=== PATIENT | female | born 2000 | race American Indian/Alaskan Native ===

== ENCOUNTER 2020-09-12 21:45 | Emergency (ER) | payer OTHER ==
[2020-09-12 22:59] LABS: Basophils % (Auto) 0.7 % (0.0-1.8); Eosinophils % (Auto) 0.4 % (0.0-4.3); Hematocrit 34.9 % (30.3-42.9); Hemoglobin 11.7 gm/dl (10.1-14.3); Lymphocytes # (Auto) 1.8 K/mm3 (1.2-5.4); Lymphocytes % (Auto) 25.1 % (13.4-35.0); Mean Corpuscular HGB Conc 34 % (30-34); Mean Corpuscular Volume 90 fl (79-97); Monocytes # (Auto) 0.4 K/mm3 (0.0-0.8); Monocytes % (Auto) 5.6 % (0.0-7.3); Platelet Count 233 K/mm3 (140-440); Red Blood Count 3.88 M/mm3 (3.65-5.03); Red Cell Distribution Width 13.9 % (13.2-15.2)
[2020-09-12 23:21] LABS: Blood Urea Nitrogen 6 mg/dL (7-17); Calcium 9.4 mg/dL (8.4-10.2); Hemolysis Index 6
[2020-09-12 23:38] LABS: BUN/Creatinine Ratio 10
[2020-09-13 00:19] LABS: Bilirubin,Urine NEG (Negative); Blood,Urine NEG (Negative); Color,Urine Yellow (Yellow); Mucus,Urine 3+ /HPF
[2020-09-13] MEDS ORDERED: SODIUM CHLORIDE 0.9% 1000 ML 1,000 ML IV ONE (00:36)
[2020-09-13] MEDS ORDERED: diphenhydrAMINE 50 MG/ML VIAL IV STA (00:36)
[2020-09-13] MEDS ORDERED: METOCLOPRAMIDE 10 MG/2 ML INJ IV STA (00:36)
--- NOTE | 2020-09-13 00:39 | Emergency Department Report ---
<MICHELLE LOMAX - Last Filed: 09/13/20 07:42> ED N/V/D HPI - General Chief complaint: Abdominal Pain Stated complaint: 16 WEEKS PREG/VOMIT Time Seen by Provider: 09/13/20 00:34 Source: patient, EMS Mode of arrival: Stretcher Limitations: No Limitations - History of Present Illness -: days(s) (2 of worsening nasusea and vomiting which originally started 7 weeks ago) Description of Vomiting: food contents Associated Abdominal Pain: Yes Radiation: none Severity: mild, moderate Quality: aching, dull Consistency: intermittent Improves with: none Worsens with: eating Context: other (morning sicknes) Associated Symptoms: nausea/vomiting. denies: myalgias, chest pain, diapho resis, malaise, syncope, weakness - Related Data Previous Rx's Medication Instructions Recorded Last Taken Type Doxylamine Succinate/Vit B6 1 each PO TID #30 tablet. 09/13/20 Unknown Rx [Jeannette Farris 10-10 mg Tablet] Allergies Allergy/AdvReac Type Severity Reaction Status Date / Time No Known Allergies Allergy Unverified 09/12/20 22:36 ED Review of Systems Comment: All other systems reviewed and negative ED Past Medical Hx - Past Medical History Previous Medical History?: Yes Additional medical history: Anemia - Surgical History Past Surgical History?: No - Social History Smoking Status: Never Smoker Substance Use Type: None - Medications Home Medications: Home Medications Medication Instructions Recorded Confirmed Last Taken Type Doxylamine Succinate/Vit B6 1 each PO TID #30 tablet. 09/13/20 Unknown Rx [Jeannette Farris 10-10 mg Tablet] ED Physical Exam - General Limitations: No Limitations General appearance: alert, in no apparent distress - Head Head exam: Present: atraumatic, normocephalic - Eye Eye exam: Present: normal appearance - ENT ENT exam: Present: mucous membranes moist - Neck Neck exam: Present: normal inspection - Respiratory Respiratory exam: Present: normal lung sounds bilaterally. Absent: respiratory distress - Cardiovascular Cardiovascular Exam: Present: regular rate, normal rhythm. Absent: systolic murmur, diastolic murmur, rubs, gallop - GI/Abdominal GI/Abdominal exam: Present: soft, tenderness (to lower abdominal region. ), normal bowel sounds, other (some potuberance due to pregancy). Absent: guar ding, rebound, organomegaly, mass - Extremities Exam Extremities exam: Present: normal inspection - Back Exam Back exam: Present: normal inspection - Neurological Exam Neurological exam: Present: alert, oriented X3 - Psychiatric Psychiatric exam: Present: normal affect, normal mood - Skin Skin exam: Present: warm, dry, intact, normal color. Absent: rash ED Medical Decision Making - Lab Data Result diagrams: 09/12/20 22:43 09/12/20 22:43 - Radiology Data female presents emergency department complaining of nausea and vomiting without diarrhea. The patient is overall well-appearing and suspected to have hyperemesis gravidarum. Given the history of examination he does not appear to be an emergency cause for the symptoms such as small bowel obstruction, coronary syndrome, bowel ischemia, DKA, pancreatitis, appendicitis, acute abdomen no emergent problem. Patient was treated with Reglan, Benadryl, fluids as well as vitamin D6. After treatment patient is feeling much better tolerating p.o. fluids shows no signs of dehydration ED Disposition Clinical Impression: Hyperemesis arising during Disposition: DC-01 TO HOME OR SELFCARE Is pt being admited?: No Does the pt Need Aspirin: No Condition: Stable Instructions: Hyperemesis Gravidarum, Abdominal Pain (ED) Prescriptions: Doxylamine Succinate/Vit B6 [Jeannette Farris 10-10 mg Tablet] 1 each PO TID #30 tablet. Referrals: PRIMARY CARE, [Primary Care Provider] - 3-5 Days [facility] [Provider Group] - 3-5 Days <TAYLOR RIOS - Last Filed: 09/15/20 20:24> ED Review of Systems ROS: Stated complaint: 16 WEEKS PREG/VOMIT Other details as noted in HPI ED Course Vital Signs 09/12/20 09/13/20 22:31 04:21 Temperature 98.3 F 98.1 F Pulse Rate 102 H 82 Respiratory 18 18 Rate Blood Pressure 118/76 Blood Pressure 120/82 [Right] O2 Sat by Pulse 100 98 Oximetry ED Medical Decision Making - Lab Data Result diagrams: 09/12/20 22:43 09/12/20 22:43 Critical care attestation.: If time is entered above; I have spent that time in minutes in the direct care of this critically ill patient, excluding procedure time. ED Disposition Is pt being admited?: No Does the pt Need Aspirin: No
[2020-09-13] MEDS ORDERED: PYRIDOXINE 50 MG TAB PO ONE (01:36)
[2020-09-13 06:54] VITALS: BP 120/82
== END 2020-09-13 04:21 | disposition home or self-care (01) ==
LOC: ED 21:45
DX: O21.0 Mild hyperemesis gravidarum (principal); O99.012 Anemia complicating pregnancy, second trimester; Z3A.16 16 weeks gestation of pregnancy; Z79.899 Other long term (current) drug therapy
CPT/HCPCS: 36415; 80048; 81001; 84702; 85025; 96361; 96374; 96375; 99284; J1200; J2765; J7030

== ENCOUNTER 2021-02-04 11:10 | Outpatient (CLI) | payer OTHER ==
[2021-02-04] MEDS ORDERED: LACTATED RINGERS 1,000 ML ONE (11:25)
[2021-02-04] MEDS: LACTATED RINGERS 1,000 ML IV SCH ×3 (12:03→16:31)
[2021-02-04] MEDS ORDERED: TERBUTALINE 1 MG/1 ML INJ SUB-Q ONE (14:43)
[2021-02-04 15:57] VITALS: BP 97/53
[2021-02-04] MEDS ORDERED: TERBUTALINE 1 MG/1 ML INJ SUB-Q SCH (16:00)
== END 2021-02-04 17:20 | disposition home or self-care (01) ==
LOC: TRG 11:10 → APU 11:12 → TRG 17:20
PROVIDERS: ATTEND Obstetrics & Gynecology
DX: O62.9 Abnormality of forces of labor, unspecified (principal); Z3A.34 34 weeks gestation of pregnancy
CPT/HCPCS: 59025; 96360; 96361; 96372; J3105; J7120

== ENCOUNTER 2021-03-03 07:47 | Inpatient (IN) | payer OTHER ==
[2021-03-03] MEDS ORDERED: LACTATED RINGERS 1000 ML IV SOLN IV SCH (09:00)
[2021-03-03 09:07] LABS: Amorphous Crystals,Urine Few; Bilirubin,Urine NEG (Negative); Blood,Urine NEG (Negative); Color,Urine Yellow (Yellow); Mucus,Urine 2+ /HPF
[2021-03-03 09:14] LABS: Amphetamine Screen,Urine Negative; Benzodiazepines Screen,Urine Negative; Cannabinoid Screen,Urine Negative; Cocaine Screen,Urine Negative; Methadone Screen,Urine Negative; Opiate Screen,Urine Negative
[2021-03-03] MEDS ORDERED: LIDOCAINE (2%) 20 MG/1 ML VIAL 20 ML MDV INFILTRATI NR (10:00)
[2021-03-03] MEDS ORDERED: miSOPROStol 200 MCG TAB PR PRN (10:00)
[2021-03-03] MEDS ORDERED: OXYTOCIN 10 UNIT/1 ML INJ IM PRN (10:00)
[2021-03-03] MEDS ORDERED: LACTATED RINGERS 1,000 ML IV SCH (10:00)
[2021-03-03] MEDS ORDERED: AMPICILLIN/NS 2 GM/100 ML 2 GM/100 ML BAG IV ONE ×2 (10:00→14:00)
[2021-03-03] MEDS ORDERED: ONDANSETRON 4 MG/2 ML INJ IV PRN (10:00)
[2021-03-03] MEDS ORDERED: METHYLERGONOVINE MALEATE 0.2 MG/ML VIAL IM PRN (10:00)
[2021-03-03] MEDS ORDERED: TERBUTALINE 1 MG/1 ML INJ SUB-Q PRN (10:00)
[2021-03-03] MEDS ORDERED: ePHEDrine SULFATE 50 MG/1 ML INJ IV PRN ×2 (10:00→14:00)
[2021-03-03] MEDS ORDERED: OXYTOCIN DRIP 30 UNITS/500 ML BAG IV SCH ×2 (10:00)
[2021-03-03] MEDS: fentaNYL 100 MCG/2 ML INJ IV PRN ×2 (10:45→12:57)
[2021-03-03 10:51] LABS: Hematocrit 34.4 % (30.3-42.9); Hemoglobin 11.4 gm/dl (10.1-14.3); Mean Corpuscular HGB Conc 33 % (30-34); Mean Corpuscular Volume 91 fl (79-97); Platelet Count 223 K/mm3 (140-440); Red Cell Distribution Width 13.7 % (13.2-15.2)
--- NOTE | 2021-03-03 13:51 | Anesthesia Day of Surgery ---
Anesthesia Day of Surgery - Day of Surgery Patient Examined: Yes Patient H&P Reviewed: Yes Patient is NPO: No
--- NOTE | 2021-03-03 13:52 | Anesthesia Consultation ---
Anesthesia Consult and Med Hx Date of service: 03/03/21 - Pre-Operative Health Status ASA Pre-Surgery Classification: ASA2 Proposed Anesthetic Plan: Epidural - Pulmonary Hx Asthma: No - Cardiovascular System Hx Hypertension: No - Central Nervous System Hx Seizures: No Hx Psychiatric Problems: No - Endocrine Hx Renal Disease: No Hx Hypothyroidism: No Hx Hyperthyroidism: No - Hematic Hx Anemia: No Hx Sickle Cell Disease: No - Other Systems Hx Alcohol Use: Yes (not during ) Hx Obesity: No
[2021-03-03] MEDS ORDERED: NALOXONE 2 MG/2 ML INJ IV PRN (14:00)
[2021-03-03] MEDS ORDERED: AMPICILLIN/NS 1 GM/50 ML 1 GM/50 ML BAG IV SCH ×2 (14:00→18:00)
[2021-03-03] MEDS ORDERED: fentaNYL-BUPIV 2 MCG/ML-0.125% 200 MCG/100 ML BAG EPIDURAL SCH (14:00)
--- NOTE | 2021-03-03 14:07 | Progress Note ---
Labor Epidural - Labor Epidural Start Time: 13:22 Stop Time: 13:47 Performed by:: JAHAIRA CASTILLO ([facility]) Procedure: Patient is requesting epidural for labor and pain. H&P, labs were reviewed. Patient IDed, H&P reviewed, all questions and concerns were answered, and consent was signed. Timeout was performed at bedside. Patient in sitting position. Sterile prep and drape was performed. 3ml of 1% lidocaine skin wheal at L[3]- L [4]. 18-gauge Tuohy epidural needle was advanced to loss of resistance with saline technique 6cm. Negative CSF negative blood. Epidural catheter advanced to [12] centimeters. [negative] Aspiration [negative] test dose. Sterile dressing applied. Patient tolerated procedure.
--- NOTE | 2021-03-03 19:36 | Progress Note ---
Assessment and Plan patient resting left tilt, no complaints. SVE 8/90/+1, head with moulding. cervix swollen at anterior portion. Patient turned to right side, left leg placed in stirrup. Will continue to monitor. - Patient Problems (1) Group B Streptococcus carrier state affecting Current Visit: Yes Status: Acute Plan to address problem: Ampicillin q4hrs until delivery (2) IUGR (intrauterine growth restriction) Current Visit: Yes Status: Acute (3) with 38 completed weeks gestation Current Visit: Yes Status: Acute Subjective - Subjective Date of service: 03/03/21 Principal diagnosis: IUP@ 38w SROM Patient reports: movement normal, no new complaints Objective - Vital Signs Vital Signs: Vital Signs - 12hr 03/03/21 03/03/21 03/03/21 08:22 08:23 08:24 Temperature Pulse Rate 93 H Respiratory Rate Blood Pressure 94/58 Blood Pressure [Left] O2 Sat by Pulse 84 86 Oximetry 03/03/21 03/03/21 03/03/21 08:28 08:33 08:38 Temperature Pulse Rate 90 92 H 87 Respiratory Rate Blood Pressure Blood Pressure [Left] O2 Sat by Pulse 100 100 100 Oximetry 03/03/21 03/03/21 03/03/21 08:43 08:48 08:53 Temperature Pulse Rate 83 84 87 Respiratory Rate Blood Pressure Blood Pressure [Left] O2 Sat by Pulse 100 100 100 Oximetry 03/03/21 03/03/21 03/03/21 08:58 09:03 09:08 Temperature Pulse Rate 79 83 87 Respiratory Rate Blood Pressure Blood Pressure [Left] O2 Sat by Pulse 99 98 100 Oximetry 03/03/21 03/03/21 03/03/21 09:13 09:18 09:23 Temperature Pulse Rate 86 76 84 Respiratory Rate Blood Pressure Blood Pressure [Left] O2 Sat by Pulse 98 77 L 99 Oximetry 03/03/21 03/03/21 03/03/21 09:28 09:33 09:38 Temperature Pulse Rate 81 94 H 88 Respiratory Rate Blood Pressure Blood Pressure [Left] O2 Sat by Pulse 100 100 100 Oximetry 03/03/21 03/03/21 03/03/21 09:43 09:48 09:53 Temperature Pulse Rate 96 H 82 78 Respiratory Rate Blood Pressure Blood Pressure [Left] O2 Sat by Pulse 99 100 100 Oximetry 03/03/21 03/03/21 03/03/21 10:18 10:43 10:45 Temperature 97.4 F L Pulse Rate 81 82 Respiratory 22 22 Rate Blood Pressure Blood Pressure 101/67 [Left] O2 Sat by Pulse 100 99 Oximetry 03/03/21 03/03/21 03/03/21 10:48 10:53 10:58 Temperature Pulse Rate 78 73 73 Respiratory Rate Blood Pressure Blood Pressure [Left] O2 Sat by Pulse 100 99 99 Oximetry 03/03/21 03/03/21 03/03/21 11:03 11:08 11:09 Temperature Pulse Rate 78 87 81 Respiratory Rate Blood Pressure 101/61 Blood Pressure [Left] O2 Sat by Pulse 100 100 Oximetry 03/03/21 03/03/21 03/03/21 11:13 11:18 11:23 Temperature Pulse Rate 95 H 85 75 Respiratory Rate Blood Pressure Blood Pressure [Left] O2 Sat by Pulse 97 100 99 Oximetry 03/03/21 03/03/21 03/03/21 11:28 11:33 11:38 Temperature Pulse Rate 83 90 84 Respiratory Rate Blood Pressure Blood Pressure [Left] O2 Sat by Pulse 99 100 99 Oximetry 03/03/21 03/03/21 03/03/21 11:43 11:45 11:48 Temperature Pulse Rate 97 H 74 Respiratory 20 Rate Blood Pressure Blood Pressure [Left] O2 Sat by Pulse 96 100 Oximetry 03/03/21 03/03/21 03/03/21 11:53 11:58 12:03 Temperature Pulse Rate 72 65 90 Respiratory Rate Blood Pressure Blood Pressure [Left] O2 Sat by Pulse 100 99 100 Oximetry 03/03/21 03/03/21 03/03/21 12:08 12:09 12:13 Temperature Pulse Rate 84 75 67 Respiratory Rate Blood Pressure 106/66 Blood Pressure [Left] O2 Sat by Pulse 96 99 Oximetry 03/03/21 03/03/21 03/03/21 12:18 12:23 12:28 Temperature Pulse Rate 85 72 89 Respiratory Rate Blood Pressure Blood Pressure [Left] O2 Sat by Pulse 94 100 100 Oximetry 03/03/21 03/03/21 03/03/21 12:33 12:38 12:39 Temperature Pulse Rate 85 76 89 Respiratory Rate Blood Pressure 106/62 Blood Pressure [Left] O2 Sat by Pulse 100 100 Oximetry 03/03/21 03/03/2121 12:43 12:48 12:53 Temperature Pulse Rate 83 75 79 Respiratory Rate Blood Pressure Blood Pressure [Left] O2 Sat by Pulse 100 100 99 Oximetry 03/03/21 03/03/21 03/03/21 12:57 12:58 13:03 Temperature Pulse Rate 75 66 Respiratory 20 Rate Blood Pressure Blood Pressure [Left] O2 Sat by Pulse 99 100 Oximetry 03/03/21 03/03/21 03/03/21 13:08 13:10 13:13 Temperature Pulse Rate 81 69 86 Respiratory Rate Blood Pressure 102/62 Blood Pressure [Left] O2 Sat by Pulse 99 100 Oximetry 03/03/21 03/03/21 03/03/21 13:18 13:22 13:23 Temperature Pulse Rate 72 98 H 84 Respiratory Rate Blood Pressure 104/66 Blood Pressure [Left] O2 Sat by Pulse 98 100 Oximetry 03/03/21 03/03/21 03/03/21 13:26 13:28 13:33 Temperature Pulse Rate 82 71 89 Respiratory Rate Blood Pressure Blood Pressure [Left] O2 Sat by Pulse 94 62 L 100 Oximetry 03/03/21 03/03/21 03/03/21 13:38 13:39 13:42 Temperature Pulse Rate 92 H 104 H 98 H Respiratory Rate Blood Pressure 113/66 107/64 Blood Pressure [Left] O2 Sat by Pulse 100 Oximetry 03/03/21 03/03/21 03/03/21 13:43 13:44 13:46 Temperature Pulse Rate 89 98 H 86 Respiratory Rate Blood Pressure 112/69 115/69 Blood Pressure [Left] O2 Sat by Pulse 100 Oximetry 03/03/21 03/03/21 03/03/21 13:48 13:50 13:52 Temperature Pulse Rate 94 H 86 90 Respiratory Rate Blood Pressure 111/66 104/64 100/63 Blood Pressure [Left] O2 Sat by Pulse 99 Oximetry 03/03/21 03/03/21 03/03/21 13:53 13:58 14:03 Temperature Pulse Rate 89 87 87 Respiratory Rate Blood Pressure Blood Pressure [Left] O2 Sat by Pulse 100 100 99 Oximetry 03/03/21 03/03/21 03/03/21 14:08 14:13 14:18 Temperature Pulse Rate 82 90 85 Respiratory Rate Blood Pressure Blood Pressure [Left] O2 Sat by Pulse 99 100 100 Oximetry 03/03/21 03/03/21 03/03/21 14:22 14:23 14:25 Temperature Pulse Rate 98 H 94 H 96 H Respiratory Rate Blood Pressure 111/72 Blood Pressure [Left] O2 Sat by Pulse 100 91 Oximetry 03/03/21 03/03/21 03/03/21 14:28 14:31 14:33 Temperature Pulse Rate 90 84 88 Respiratory Rate Blood Pressure Blood Pressure [Left] O2 Sat by Pulse 87 89 100 Oximetry 03/03/21 03/03/21 03/03/21 14:38 14:43 14:48 Temperature Pulse Rate 87 81 73 Respiratory Rate Blood Pressure Blood Pressure [Left] O2 Sat by Pulse 100 98 100 Oximetry 03/03/21 03/03/21 03/03/21 14:53 14:58 15:03 Temperature Pulse Rate 75 85 70 Respiratory Rate Blood Pressure 109/67 Blood Pressure [Left] O2 Sat by Pulse 100 99 100 Oximetry 03/03/21 03/03/21 03/03/21 15:08 15:13 15:18 Temperature Pulse Rate 74 74 81 Respiratory Rate Blood Pressure Blood Pressure [Left] O2 Sat by Pulse 100 100 100 Oximetry 03/03/21 03/03/21 03/03/21 15:23 15:28 15:33 Temperature Pulse Rate 80 71 69 Respiratory Rate Blood Pressure 109/57 Blood Pressure [Left] O2 Sat by Pulse 99 100 100 Oximetry 03/03/21 03/03/21 03/03/21 15:38 15:43 15:48 Temperature Pulse Rate 68 78 84 Respiratory Rate Blood Pressure Blood Pressure [Left] O2 Sat by Pulse 100 100 96 Oximetry 03/03/21 03/03/21 03/03/21 15:52 15:53 15:58 Temperature Pulse Rate 85 79 85 Respiratory Rate Blood Pressure Blood Pressure [Left] O2 Sat by Pulse 91 99 99 Oximetry 03/03/21 03/03/21 03/03/21 16:03 16:06 16:08 Temperature Pulse Rate 74 94 H 79 Respiratory Rate Blood Pressure 102/69 Blood Pressure [Left] O2 Sat by Pulse 97 89 98 Oximetry 03/03/21 03/03/21 03/03/21 16:13 16:17 16:18 Temperature Pulse Rate 74 93 H 75 Respiratory Rate Blood Pressure Blood Pressure [Left] O2 Sat by Pulse 100 84 98 Oximetry 03/03/21 03/03/2103/03/21 16:22 16:23 16:28 Temperature Pulse Rate 75 77 79 Respiratory Rate Blood Pressure 104/67 Blood Pressure [Left] O2 Sat by Pulse 100 100 Oximetry 03/03/21 03/03/21 03/03/21 16:33 16:38 16:43 Temperature Pulse Rate 82 83 69 Respiratory Rate Blood Pressure Blood Pressure [Left] O2 Sat by Pulse 100 100 99 Oximetry 03/03/21 03/03/21 03/03/21 16:48 16:53 16:58 Temperature Pulse Rate 91 H 71 71 Respiratory Rate Blood Pressure 101/55 Blood Pressure [Left] O2 Sat by Pulse 99 100 100 Oximetry 03/03/21 03/03/21 03/03/21 17:03 17:08 17:13 Temperature Pulse Rate 82 77 84 Respiratory Rate Blood Pressure Blood Pressure [Left] O2 Sat by Pulse 100 100 100 Oximetry 03/03/21 03/03/21 03/03/21 17:18 17:23 17:24 Temperature Pulse Rate 80 91 H 85 Respiratory Rate Blood Pressure 116/57 Blood Pressure [Left] O2 Sat by Pulse 100 72 L Oximetry 03/03/21 03/03/21 03/03/21 17:28 17:33 17:38 Temperature Pulse Rate 81 87 76 Respiratory Rate Blood Pressure Blood Pressure [Left] O2 Sat by Pulse 100 100 100 Oximetry 03/03/21 03/03/21 03/03/21 17:43 17:48 17:53 Temperature Pulse Rate 81 78 77 Respiratory Rate Blood Pressure Blood Pressure [Left] O2 Sat by Pulse 100 100 99 Oximetry 03/03/21 03/03/21 03/03/21 17:54 17:55 17:58 Temperature Pulse Rate 83 91 H 81 Respiratory Rate Blood Pressure 98/56 Blood Pressure [Left] O2 Sat by Pulse 70 L 100 Oximetry 03/03/21 03/03/21 03/03/21 18:03 18:07 18:08 Temperature Pulse Rate 76 97 H Respiratory Rate Blood Pressure Blood Pressure [Left] O2 Sat by Pulse 99 84 100 Oximetry 03/03/21 03/03/21 03/03/21 18:13 18:18 18:23 Temperature Pulse Rate 74 93 H 94 H Respiratory Rate Blood Pressure 88/52 Blood Pressure [Left] O2 Sat by Pulse 100 100 99 Oximetry 03/03/21 03/03/2121 18:28 18:33 18:38 Temperature Pulse Rate 98 H 92 H 78 Respiratory Rate Blood Pressure Blood Pressure [Left] O2 Sat by Pulse 99 99 100 Oximetry 03/03/21 03/03/21 03/03/21 18:43 18:48 18:52 Temperature Pulse Rate 67 67 68 Respiratory Rate Blood Pressure 99/60 Blood Pressure [Left] O2 Sat by Pulse 100 100 Oximetry 03/03/21 03/03/21 03/03/21 18:53 18:58 19:03 Temperature Pulse Rate 61 67 74 Respiratory Rate Blood Pressure Blood Pressure [Left] O2 Sat by Pulse 99 100 100 Oximetry 03/03/21 03/03/21 03/03/21 19:08 19:13 19:17 Temperature Pulse Rate 69 86 108 H Respiratory Rate Blood Pressure Blood Pressure [Left] O2 Sat by Pulse 100 99 93 Oximetry 03/03/21 19:18 Temperature Pulse Rate 74 Respiratory Rate Blood Pressure Blood Pressure [Left] O2 Sat by Pulse 100 Oximetry - Exam Breasts: normal Cardiovascular: Regular rate Lungs: Normal air movement Abdomen: Present: normal appearance, soft Vulva: both: normal Uterus: Present: normal, fundal height above umbilicus FHR: category 2 Uterine Contraction Monitor Mode: Internal Cervical Dilatation: 8 (anterior portion of cervix swollen) Cervical Effacement Percentage: 90 station: +1 Uterine Contraction Frequency (min): 2-3 Uterine Contraction Duration: 60 Uterine Contraction Pattern: Regular Uterine Tone Measurement Phase: Contraction Uterine Contraction Intensity: Strong/Firm Extremities: normal - Labs Labs: Abnormal Labs 03/03/21 Unknown Urine WBC (Auto) 8.0 H U Epithel Cells (Auto) 26.0 H Laboratory Results - last 24 hr 03/03/21 03/03/21 03/03/21 09:55 09:55 09:55 WBC 8.0 RBC 3.80 Hgb 11.4 Hct 34.4 MCV 91 MCH 30 MCHC 33 RDW 13.7 Plt Count 223 Urine Color Urine Turbidity Urine pH Ur Specific [place] Urine Protein Urine Glucose (UA) Urine Ketones Urine Blood Urine Nitrite Urine Bilirubin Urine Urobilinogen Ur Leukocyte Esterase Urine WBC (Auto) Urine RBC (Auto) U Epithel Cells (Auto) Amorphous Crystals Urine Mucus Urine Opiates Screen Urine Methadone Screen Ur Barbiturates Screen Ur Phencyclidine Scrn Ur Amphetamines Screen U Benzodiazepines Scrn Urine Cocaine Screen U Marijuana (THC) Screen Drugs of Abuse Note Syphilis IgG Antibody Nonreactive Blood Type O POSITIVE Antibody Screen Negative 03/03/21 03/03/21 Unknown Unknown WBC RBC Hgb Hct MCV MCH MCHC RDW Plt Count Urine Color Yellow Urine Turbidity Cloudy Urine pH 6.0 Ur Specific [place] 1.016 Urine Protein 30 mg/dl Urine Glucose (UA) Neg Urine Ketones Neg Urine Blood Neg Urine Nitrite Neg Urine Bilirubin Neg Urine Urobilinogen 4.0 Ur Leukocyte Esterase Neg Urine WBC (Auto) 8.0 H Urine RBC (Auto) 4.0 U Epithel Cells (Auto) 26.0 H Amorphous Crystals Few Urine Mucus 2+ Urine Opiates Screen Negative Urine Methadone Screen Negative Ur Barbiturates Screen Negative Ur Phencyclidine Scrn Negative Ur Amphetamines Screen Negative U Benzodiazepines Scrn Negative Urine Cocaine Screen Negative U Marijuana (THC) Screen Negative Drugs of Abuse Note Disclamer Syphilis IgG Antibody Blood Type Antibody Screen
--- NOTE | 2021-03-03 21:53 | Procedure Note ---
OB Delivery Note - Delivery Date of Delivery: 03/03/21 ( male) Shuttle Inspector: GERSON WRIGHT Estimated blood loss: <100cc - Vaginal Delivery presentation: vertex Delivery position: OA (GIANA) Intrapartum events: PROM->1hr before delivery, other(please specify) (IUGR) Delivery induction: none Delivery augmentation: pitocin Delivery monitor: internal FHT, internal uterine Route of delivery: Delivery placenta: spontaneous Delivery cord: 3 umbilical vessels Episiotomy: none Delivery laceration: none Anesthesia: epidural Delivery comments: male baby born over GIANA over intact perineum. placed on mother's abdomen for skin to skin, 3 vessel cord clamped and cut after cessation of pulsation. cord blood collected. Placenta del intact and complete - sent to pathology d/t IUGR. no lacerations. bleeding scant, fundus firm. EBL <100. apgars 8/9, wt. 5#12oz, all counts correct, mother and baby LDR stable. - Infant A at 1 minute: 8 (5#12) at 5 minutes: 9 Infant Gender: Male
[2021-03-03] MEDS ORDERED: MINERAL OIL 30 ML ORAL LIQD PO PRN (22:00)
[2021-03-04] MEDS ORDERED: BENZOCAINE/MENTHOL 20/0.5% TOP SPRAY 56 GM TP PRN (00:19)
[2021-03-04] MEDS ORDERED: OXYTOCIN DRIP 30 UNITS/500 ML BAG IV SCH (00:19)
[2021-03-04] MEDS ORDERED: diphenhydrAMINE 25 MG CAP PO PRN (00:19)
[2021-03-04] MEDS ORDERED: WITCH HAZEL/ GLYCERIN PAD TP PRN (00:19)
[2021-03-04] MEDS ORDERED: PROMETHAZINE 25 MG RECT SUPP PR PRN (00:19)
[2021-03-04] MEDS ORDERED: LANOLIN/ZINC/DIMETHICONE (LANSINOH) 7 GM TP PRN (00:19)
[2021-03-04] MEDS ORDERED: PROMETHAZINE 25 MG TAB PO PRN (00:19)
[2021-03-04] MEDS ORDERED: MAGNESIUM HYDROXIDE (MOM) ORAL LIQD UDC PO PRN (00:19)
--- NOTE | 2021-03-04 05:28 | History and Physical Report ---
History of Present Illness Date of examination: 03/03/21 (pt presented with c/o worsening ctx) Chief complaint: SROM while in Triage History of present illness: EDC Confirmation: 03/15/2021 Gestational Age: 38 2/7 weeks Past History : 1 Term Births: 0 Premature Births: 0 Living Children: 0 Para: 0 Mult. Births: 0 Prev : 0 Prev. attempt? 0 Aborta: 0 Elect. Ab: 0 Spont. Ab: 0 Ectopics: 0 Past Medical History: Negative Past Medical History Past Surgical History: Negative Past Surgical History Past Medical History Surgery (Non-cylinder block hole reliner): Negative Past Surgical History Abnormal PAP: negative BEN Exposure: negative Infertility: negative Uterine Anomaly: negative Uterine Surgery (not C/S): negative Other Gynecologic Problems: negative Family Hx: Brother is a type 1 diabetic Social Hx: Patient is single Smoking History: Patient has never smoked. Infection History Hx of STD: none HIV Risk Eval: low risk Hepatitis B Risk Eval: low risk Personal hx. of genital herpes: no Partner hx. of genital herpes: no Rash, Viral, or Febrile illness since last LMP? no Varicella/Chicken Pox Status: Immunized TB Risk: no Genetic History Congenital Heart Defect: Mom: no Dad: no Manjeet Disease: Mom: no Dad: no Thalassemia Mom: no Dad: no Neural Tube Defect Mom: no Dad: no Down's Syndrome Mom: no Dad: no Arnol-Sachs Mom: no Dad: no Sickle Cell Disease/Trait Mom: no Dad: no Hemophilia Mom: no Dad: no Muscular Dystrophy Mom: no Dad: no Cystic Fibrosis Mom: no Dad: no [place] Mom: no Dad: no Mental Retardation Mom: no Dad: no Fragile X Mom: no Dad: no Other Genetic/Chromosomal Disorder Mom: no Dad: no Child w/other defect Mom: no Dad: no Enviromental Exposures Xray Exposure: no Medication, drug, or alcohol use since LMP: no Chemical/Other Exposure: no Exposure to Cat Liter: no Hx of Parvovirus (Fifth Disease): no Occupational Exposure to Children: none Current Allergies: No known allergies Past History - Obstetrical History Expected Date of Delivery: 03/15/21 Actual Gestation: 38 Week(s) 3 Day(s) : 1 Para: 0 Hx # Term Pregnancies: 0 Number of Pregnancies: 0 Spontaneous Abortions: 0 Induced : 0 Number of Living Children: 0 Medications and Allergies Allergies Allergy/AdvReac Type Severity Reaction Status Date / Time No Known Allergies Allergy Verified 02/04/21 11:40 Home Medications Medication Instructions Recorded Confirmed Last Taken Type Ibuprofen [Motrin 800 MG tab] 800 mg PO Q8HR PRN #30 tablet 03/03/21 Unknown Rx Lidocain2.5%/Prilocai2.5% [Emla] 5 gm TP ONCE PRN #1 tube 03/03/21 Unknown Rx Pnv No.153/FA/Om3/Dha/Epa/Fish 2 each PO DAILY 03/03/21 03/03/21 03/01/21 13:00 History [[facility] Gumm[facility]] Active Meds: Active Medications Lactated Ringer's (Lactated Ringers 1000 Ml Iv Soln) 1,000 ml IV DIRECT ARIANNE - Vital Signs Vital signs: Vital Signs Pulse BP 93 H 94/58 03/03/21 08:22 03/03/21 08:22 Temp Pulse Resp BP Pulse Ox 82 94/58 100 03/03/21 09:48 03/03/21 08:22 03/03/21 09:48 - Physical Exam Breasts: Positive: deferred Cardiovascular: Regular rate, Normal S1, Normal S2 Lungs: Positive: Clear to auscultation Abdomen: Positive: normal appearance, soft, normal bowel sounds. Negative: distention, tenderness Genitourinary (Female): Positive: normal perenium Vulva: both: normal Vagina: Positive: normal moisture. Negative: discharge Cervix: Negative: lesion, discharge Uterus: Positive: normal size, normal contour Adnexa: both: normal Anus/Rectum: Positive: normal perianal skin, heme negative. Negative: rectal mass, hemorrhoids Extremities: Deep Tendon Reflex Grade: Normal +2 - Obstetrical FHR: category 1 Uterine Contraction Monitor Mode: External Cervical Dilatation: 5 Cervical Effacement Percentage: 100 station: -2 Uterine Contraction Pattern: Regular Uterine Tone Measurement Phase: Resting Uterine Contraction Intensity: Moderate Results Result Diagrams: 03/03/21 09:55 Abnormal lab results 03/03/21 Range/Units Unknown Urine WBC (Auto) 8.0 H (0.0-6.0) /HPF U Epithel Cells (Auto) 26.0 H (0-13.0) /HPF All other labs normal. GBS POSITIVE HBsAg Screen Negative Negative *1 RPR Non Reactive Non Reactive *2 Rubella Antibodies, IgG 10.70 index Immune >0.99 *3 Non-immune <0.90 Equivocal 0.90 - 0.99 Immune >0.99 ABO Grouping O *4 Rh Factor Positive *5 Please note: Prior records for this patient's ABO / Rh type are not available for additional verification. Antibody Screen Negative Negative *6 WBC 5.6 x10E3/uL 3.4-10.8 *7 RBC 3.94 x10E6/uL 3.77-5.28 *8 Hemoglobin 11.5 g/dL 11.1-15.9 *9 Hematocrit 35.0 % 34.0-46.6 *10 MCV 89 fL 79-97 *11 MCH 29.2 pg 26.6-33.0 *12 MCHC 32.9 g/dL 31.5-35.7 *13 RDW 13.8 % 11.7-15.4 *14 Platelets 258 x10E3/uL 150-450 *15 Neutrophils 58 % Not Estab. *16 Lymphs 31 % Not Estab. *17 Monocytes 9 % Not Estab. *18 Eos 1 % Not Estab. *19 Basos 1 % Not Estab. *20 ! Immature Cells <No Reported Value> *21 Neutrophils (Absolute) 3.3 x10E3/uL 1.4-7.0 *22 Lymphs (Absolute) 1.8 x10E3/uL 0.7-3.1 *23 Monocytes(Absolute) 0.5 x10E3/uL 0.1-0.9 *24 Eos (Absolute) 0.0 x10E3/uL 0.0-0.4 *25 Baso (Absolute) 0.0 x10E3/uL 0.0-0.2 *26 ! Immature Granulocytes 0 % Not Estab. *27 ! Immature Grans (Abs) 0.0 x10E3/uL 0.0-0.1 *28 ! NRBC <No Reported Value> *29 Hematology Comments: <No Reported Value> *30 Tests: (2) AFP Tetra ([id number]) ! Results Report *31 ! Test Results: *Screen Negative* *32 ! Gest. Age on Collection Date 15.1 WEEKS *33 ! Gestat. Age Based On Ultrasound *34 15.1 on 09/22/2020 Tests: (3) HIV Ag/Ab with Reflex ([id number]) HIV Screen 4th Generation wRfx Non Reactive Non Reactive *55 Tests: (4) HCV Ab w/Rflx to Verification ([id number]) ! HCV Ab <0.1 s/co ratio 0.0-0.9 *56 Tests: (5) Comment: ([id number]) ! Comment: [facility] *57 Non reactive HCV antibody screen is consistent with no HCV infection, unless recent infection is suspected or other evidence exists to indicate HCV infection. Effective November 03, 2020 HCV Ab w/Rflx to Verification will be made non-orderable. [facility] offers order code [id number] HCV Antibody reflex to MYLES. Tests: (6) Urine Culture, Routine ([id number]) Urine Culture, Routine Final report *58 Tests: (7) Result ([id number]) ! Result 1 "Result Below..." *59 RESULT: Lactobacillus species 10,000-25,000 colony forming units per mL Susceptibility not normally performed on this organism. Assessment and Plan 20yo @ 38w with SROM in labor GBS+ All orders in EMR - Patient Problems (1) Group B Streptococcus carrier state affecting Onset Date: ~03/03/21 Current Visit: No Status: Acute Plan to address problem: Ampicillin per protocol
[2021-03-04] MEDS: IBUPROFEN 600 MG TAB PO SCH ×2 (05:40→21:19)
[2021-03-04] MEDS ORDERED: TETANUS,DIPH,PERTUSS(ACELL) VACCINE 0.5 ML SYRINGE IM ONE (06:00)
[2021-03-04] MEDS: DOCUSATE SODIUM 100 MG CAP PO SCH ×2 (09:22→21:19)
[2021-03-04] MEDS ORDERED: PRENATAL VIT27-FE FUMARATE-FOLIC ACID VIT TAB PO SCH (10:00)
--- NOTE | 2021-03-04 10:02 | Post Anesthesia Evaluation ---
- Post Anesthesia Evaluation Patient Participated: Yes Airway Patent: Yes Stable Respiratory Function: Yes Nausea/Vomiting: No Temp > 96.8F: Yes Pain Manageable: Yes Adequeate Hydration: Yes Anesthesia Complications: No Block Receding Appropriately: Yes Patient on Ventilator: No
[2021-03-04 10:21] LABS: Hematocrit 29.2 % (30.3-42.9); Hemoglobin 9.6 gm/dl (10.1-14.3)
--- NOTE | 2021-03-04 19:00 | Progress Note ---
Assessment and Plan Fundus firm and lochia scant. Pt denies all complaints. Pt with asymptomatic anemia H/H 9.6/29.2 d/t blood loss. Reports eating, ambulating, and voiding without difficulty; Fe supplementation ordered. Pt desires to breast and bottle feed, encouragement and education given. Pt reports desire for circumcision and Depovera for PP contraception. Reviewed need for 1wk appt and 4wk PP FU appt for pt in our office. Discharge precautions reviewed with pt. - Patient Problems (1) (normal spontaneous vaginal delivery) Current Visit: Yes Status: Acute Plan to address problem: continue pathway Subjective - Subjective Date of service: 03/04/21 Principal diagnosis: PP day#1 Patient reports: appetite normal, voiding normally, pain well controlled, ambulating normally, no dizzy ambulation, no appetite poor, no pain poorly controlled, no nauseated : doing well, bottle feeding Objective - Vital Signs Latest vital signs: Vital Signs Temp Pulse Resp BP BP Pulse Ox 03/04/21 07:55 98.7 F 84 16 92/56 99 03/04/21 06:55 98.2 F 93 H 18 93/58 100 03/04/21 05:40 18 03/04/21 05:27 99.5 F 20 89/52 03/04/21 00:30 98.0 F 70 18 106/62 100 03/03/21 23:40 77 105/73 03/03/21 23:25 100 H 110/75 03/03/21 23:10 93 H 107/74 03/03/21 22:55 85 100/64 03/03/21 22:40 89 98/63 03/03/21 22:25 96 H 116/69 03/03/21 22:10 97 H 118/67 03/03/21 21:52 100 H 112/73 03/03/21 21:31 144 H 80 L 03/03/21 21:28 144 H 100 03/03/21 21:23 136 H 100 03/03/21 21:18 105 H 100 03/03/21 21:13 89 100 03/03/21 21:08 74 100 03/03/21 21:03 67 100 03/03/21 20:58 83 99 03/03/21 20:53 102 H 100 05/18/21 20:48 59 L 98 05/18/21 20:43 73 100 05/18/21 20:38 65 100 05/18/21 20:33 65 99 05/18/21 20:28 65 100 05/18/21 20:27 70 93 05/18/21 20:23 70 100 05/18/21 20:21 76 91 05/18/21 20:18 66 100 05/18/21 20:13 70 99 05/18/21 20:11 91 H 76 L 05/18/21 20:08 89 100 05/18/21 20:03 62 100 05/18/21 19:58 74 100 05/18/21 19:53 78 91/61 100 05/18/21 19:48 75 100 05/18/21 19:43 61 100 05/18/21 19:38 70 100 05/18/21 19:33 67 100 05/18/21 19:28 68 100 05/18/21 19:26 69 16 05/18/21 19:24 75 92/56 05/18/21 19:23 68 100 05/18/21 19:18 74 100 05/18/21 19:17 108 H 93 05/18/21 19:13 86 99 05/18/21 19:08 69 100 05/18/21 19:03 74 100 05/18/21 18:58 67 100 05/18/21 18:53 61 99 05/18/21 18:52 68 99/60 05/18/21 18:48 67 100 05/18/21 18:43 67 100 05/18/21 18:38 78 100 05/18/21 18:33 92 H 99 05/18/21 18:28 98 H 99 05/18/21 18:23 94 H 88/52 99 05/18/21 18:18 93 H 100 05/18/21 18:13 74 100 05/18/21 18:08 97 H 100 05/18/21 18:07 84 05/18/21 18:03 76 99 05/18/21 17:58 81 100 05/18/21 17:55 91 H 70 L 05/18/21 17:54 83 98/56 05/18/21 17:53 77 99 05/18/21 17:48 78 100 05/18/21 17:43 81 100 05/18/21 17:38 76 100 05/18/21 17:33 87 100 05/18/21 17:28 81 100 05/18/21 17:24 85 116/57 05/18/21 17:23 91 H 72 L 05/18/21 17:18 80 100 05/18/21 17:13 84 100 05/18/21 17:08 77 100 05/18/21 17:03 82 100 05/18/21 16:58 71 100 05/18/21 16:53 71 101/55 100 05/18/21 16:48 91 H 99 05/18/21 16:43 69 99 05/18/21 16:38 83 100 05/18/21 16:33 82 100 05/18/21 16:28 79 100 05/18/21 16:23 77 100 05/18/21 16:22 75 104/67 05/18/21 16:18 75 98 05/18/21 16:17 93 H 84 05/18/21 16:13 74 100 05/18/21 16:08 79 102/69 98 05/18/21 16:06 94 H 89 05/18/21 16:03 74 97 05/18/21 15:58 85 99 05/18/21 15:53 79 99 05/18/21 15:52 85 91 05/18/21 15:48 84 96 05/18/21 15:43 78 100 05/18/21 15:38 68 100 05/18/21 15:33 69 100 05/18/21 15:28 71 100 05/18/21 15:23 80 109/57 99 05/18/21 15:18 81 100 05/18/21 15:13 74 100 05/18/21 15:08 74 100 05/18/21 15:03 70 100 05/18/21 14:58 85 99 05/18/21 14:53 75 109/67 100 05/18/21 14:48 73 100 05/18/21 14:43 81 98 05/18/21 14:38 87 100 05/18/21 14:33 88 100 05/18/21 14:31 84 89 05/18/21 14:28 90 87 05/18/21 14:25 96 H 91 05/18/21 14:23 94 H 100 05/18/21 14:22 98 H 111/72 05/18/21 14:18 85 100 05/18/21 14:13 90 100 05/18/21 14:08 82 99 05/18/21 14:03 87 99 05/18/21 13:58 87 100 05/18/21 13:53 89 100 05/18/21 13:52 90 100/63 05/18/21 13:50 86 104/64 05/18/21 13:48 94 H 111/66 99 05/18/21 13:46 86 115/69 05/18/21 13:44 98 H 112/69 05/18/21 13:43 89 100 05/18/21 13:42 98 H 107/64 05/18/21 13:39 104 H 113/66 05/18/21 13:38 92 H 100 05/18/21 13:33 89 100 05/18/21 13:28 71 62 L 05/18/21 13:26 82 94 05/18/21 13:23 84 100 05/18/21 13:22 98 H 104/66 05/18/21 13:18 72 98 05/18/21 13:13 86 100 05/18/21 13:10 69 102/62 05/18/21 13:08 81 99 05/18/21 13:03 66 100 05/18/21 12:58 75 99 05/18/21 12:57 20 05/18/21 12:53 79 99 05/18/21 12:48 75 100 05/18/21 12:43 83 100 05/18/21 12:39 89 106/62 05/18/21 12:38 76 100 05/18/21 12:33 85 100 05/18/21 12:28 89 100 05/18/21 12:23 72 100 05/18/21 12:18 85 94 05/18/21 12:13 67 99 05/18/21 12:09 75 106/66 05/18/21 12:08 84 96 05/18/21 12:03 90 100 05/18/21 11:58 65 99 05/18/21 11:53 72 100 05/18/21 11:48 74 100 05/18/21 11:45 20 05/18/21 11:43 97 H 96 05/18/21 11:38 84 99 05/18/21 11:33 90 100 03/03/21 11:28 83 99 03/03/21 11:23 75 99 03/03/21 11:18 85 100 03/03/21 11:13 95 H 97 03/03/21 11:09 81 101/61 03/03/21 11:08 87 100 03/03/21 11:03 78 100 03/03/21 10:58 73 99 03/03/21 10:53 73 99 03/03/21 10:48 78 100 03/03/21 10:45 22 03/03/21 10:43 82 99 03/03/21 10:18 97.4 F L 81 22 101/67 100 03/03/21 09:53 78 100 03/03/21 09:48 82 100 Intake and Output 03/03/21 03/04/21 03/04/21 23:59 07:59 15:59 Intake Total 240 Output Total 650 800 Balance -650 -560 Intake: Oral 240 Output: Urine 650 800 Indwelling Catheter 350 Void 300 800 Other: Total, Intake Amount 240 Total, Output Amount 300 800 # Voids Void 1 - Exam Breasts: Present: normal Cardiovascular: Present: Regular rate Lungs: Present: Normal air movement Abdomen: Present: normal appearance, soft Vulva: both: normal Uterus: Present: normal, firm, fundal height below umbilicus Extremities: Present: normal
[2021-03-05] MEDS: IBUPROFEN 600 MG TAB PO SCH ×2 (05:12)
--- NOTE | 2021-03-05 08:21 | Discharge Summary ---
Providers - Providers Date of Admission: 03/03/21 10:00 Date of discharge: 03/05/21 (desires d/c home) Attending physician: HARRY ZAMBRANO 03/04/21 00:19 Consult to Dial Marker [CONS] Routine Reason For Exam: assistance with , SNS Primary care physician: HARRY ZAMBRANO Hospitalization Reason for admission: Labor Condition: Good Pertinent studies: H&H 9.6/29.2, anemia from acute blood loss, asymptomatic Procedures: Hospital course: uncomplicated and course Disposition: DC- TO HOME OR SELFCARE Final Discharge Diagnosis (Prints w/discharge instructions): vaginal delivery Time spent for discharge: 20 - Discharge Diagnoses (1) (normal spontaneous vaginal delivery) Status: Acute Core Measure Documentation - Palliative Care Palliative Care/ Comfort Measures: Not Applicable - Core Measures Any of the following diagnoses?: none Exam - Constitutional Vitals: Temp Pulse Resp BP Pulse Ox 98.6 F 68 18 115/76 100 03/05/21 00:00 03/05/21 00:00 03/05/21 00:00 03/05/21 00:00 03/04/21 18:06 General appearance: Present: no acute distress, well-nourished - EENT Eyes: Present: PERRL ENT: hearing intact, clear oral mucosa - Neck Neck: Present: supple, normal ROM - Respiratory Respiratory effort: normal Respiratory: bilateral: CTA - Cardiovascular Rhythm: regular Heart Sounds: Absent: rub, click - Extremities Extremities: No edema - Abdominal General gastrointestinal: Present: soft, non-tender, non-distended, normal bowel sounds Female genitourinary: Present: normal - Integumentary Integumentary: Present: clear, warm, dry - Musculoskeletal Musculoskeletal: gait normal, strength equal bilaterally - Psychiatric Psychiatric: appropriate mood/affect, intact judgment & insight - Neurologic Neurologic: CNII-XII intact, moves all extremities - Additional findings Additional findings: lochia scant, fundus firm Plan Activity: no restrictions Diet: regular Follow up with: HARRY ZAMBRANO MD [Primary Care Provider] - 7 Days (Congratulations! Please call [phone] to schedule your son's circumcision in 1 week and your visit in 6 weeks. Bring EMLA cream to your son's appointment and await for additional teaching. Call for any questions or concerns.) Prescriptions: Lidocain2.5%/Prilocai2.5% [Emla] 5 gm TP ONCE PRN #1 tube PRN Reason: Pain Ibuprofen [Motrin 800 MG tab] 800 mg PO Q8HR PRN #30 tablet PRN Reason: Pain
[2021-03-05] MEDS ORDERED: medroxyPROGESTERone ACETATE 150 MG/ML SYRINGE IM ONE ×2 (09:00→15:02)
--- NOTE | 2021-03-05 11:14 | Consultation ---
History of Present Illness - Reason for Consult Consult date: 03/05/21 Reason for consult: MHE Requesting physician: NYA DELANEY - Chief Complaint Chief complaint: SROM while in Triage - History of Present Psychiatric Illness PSYCH HPI Patient is a 20-year-old single, currently unemployed -English female who resides with her boyfriend with no past psychiatric history or medical history admitted to [facility] for child delivery with subsequent mental health evaluation placed due to depression score assessment. Patient states that her responses to the assessment was based on how she felt during the but not after having a baby. She reported she feels fine, does not have any financial, family, relationship of life stresses at this moment. States that she is very happy to see her baby and have a baby, though complains of poor sleep but states she does just fine. States that the baby father has been financially supportive and she also has support of her sibling and parents. Patient describes a good and stable mood, denies being depressed or excessively nervous. Patient eats well. Patient denies panic attacks, recurrent nightmares or flashbacks. Patient denies symptoms suggestive of OCD or PTSD. Patient denies hallucinations, paranoia, thought interference and no features suggestive of hypomania or daniel. Patiently completely denies suicidal or homicidal thoughts. PAST PSYCHIATRIC HISTORY Diagnoses: None reported Suicide attempts or Self-harm behavior: None reported Prior psychiatric hospitalizations: None reported Substance Abuse history: None reported Previous psychiatric medications tried: None reported Outpatient treatment: None reported PAST MEDICAL HISTORY: None reported Family Psychiatric History: None reported or documented SOCIAL HISTORY Marital Status: Single Living Arrangements: With boyfriend Employment Status: Unemployed Access to guns/weapons: None report Education: High school diploma History of Abuse: None reported Legal History: None report REVIEW OF SYSTEMS Constitutional: Negative for weight loss ENT: Negative for stridor Respiratory: Negative for cough or hemoptysis All other systems reviewed and are negative MENTAL STATUS EXAMINATION General Appearance and Behavior: Age appropriate, good hygiene, wearing appropriate clothes, good eye contact, cooperative polite with questioning. Cooperation: Participating/engaged Psychomotor Behavior: unremarkable and within normal limits Mood: Good Affect and affective range: congruent with mood Thought Process: Fluent/Logical, Thought Content: Within reality, Speech: Normal volume, Regular rate and rhythm, Intellectual Functioning: Average Suicidal Ideation: Denies SI Homicidal Ideation: Denies HI Impulse Control: Unimpaired Insight and Judgment: Normal insight and judgment, Memory: Normal, Attention: Normal, Orientation: Alert, oriented, Assessment and Plan - Psychiatric problem (1) Encounter for screening examination for mental health and behavioral disor ders Current Visit: Yes Status: Acute Z13.30 Treatment Plan MEDICATIONS: Risks, benefits and alternatives of medications discussed with the patient, questions answered and consent obtained from patient. PSYCHOTHERAPY: Supportive psychotherapy provided MEDICAL: Per primary team DELIRIUM PRECAUTIONS: Please re-orient patient frequently, keep lights on during the day, and minimize benzodiazepines and opiates as these medications could worsen patient's confusion. [employer]NER: DISPOSITION: Do Not Recommend acute inpatient psychiatric hospitalization at this time. Case discussed with Dr. Garsia who agrees with current disposition LEGAL STATUS: Voluntary FOLLOW-UP: Will sign off Thank you for the consult. Please contact with any questions and/or concerns. Medications and Allergies Allergies Allergy/AdvReac Type Severity Reaction Status Date / Time No Known Allergies Allergy Verified 02/04/21 11:40 Home Medications Medication Instructions Recorded Confirmed Last Taken Type Ibuprofen [Motrin 800 MG tab] 800 mg PO Q8HR PRN #30 tablet 03/03/21 Unknown Rx Lidocain2.5%/Prilocai2.5% [Emla] 5 gm TP ONCE PRN #1 tube 03/03/21 Unknown Rx Pnv No.153/FA/Om3/Dha/Epa/Fish 2 each PO DAILY 03/03/21 03/03/21 03/01/21 13:00 History [[facility]] Active Meds: Active Medications Benzocaine/Menthol (Benzocaine/Menthol 20/0.5% [place] 56 Gm) 1 spray TP PRN PRN PRN Reason: Episiotomy Pain Bisacodyl (Bisacodyl 10 Mg Rect Supp) 10 mg OK BID PRN PRN Reason: Constipation Diphenhydramine HCl (Diphenhydramine 25 Mg Cap) 25 mg PO Q6H PRN PRN Reason: Itching Docusate Sodium (Docusate Sodium 100 Mg Cap) 100 mg PO BID ARIANNE Last Admin: 03/04/21 21:19 Dose: 100 mg Documented by: Oxytocin/Sodium Chloride (Pitocin/Ns 30 Unit/500ml) 30 units in 500 mls @ 40 mls/hr IV TITR ARIANNE; Protocol Ibuprofen (Ibuprofen 600 Mg Tab) 600 mg PO Q6HR [facility] Last Admin: 03/05/21 05:12 Dose: 600 mg Documented by: Magnesium Hydroxide (Magnesium Hydroxide (Mom) Oral Liqd Udc) 30 ml PO HS PRN PRN Reason: Constipation Multi-Ingredient Ointment (Lanolin/Zinc/Dimethicone (Lansinoh) 7 Gm) 1 applic TP PRN PRN PRN Reason: Sore Nipples Multivitamins/Iron/Calcium ( Bna54-Cp Fumarate-Folic Acid Vit Tab) 1 each PO QDAY [facility] Last Admin: 03/04/21 09:23 Dose: 1 each Documented by: Promethazine HCl (Promethazine 25 Mg Rect Supp) 25 mg OK Q6H PRN PRN Reason: Nausea And Vomiting Promethazine HCl (Promethazine 25 Mg Tab) 25 mg PO Q6H PRN PRN Reason: Nausea And Vomiting Witch Arielle/Glycerin (Witch Arielle/ Glycerin Pad) 1 each TP PRN PRN PRN Reason: Hemorrhoid/cleansing/soothing Mental Status Exam - Vital signs Last Vital Signs Temp 98.1 F 03/05/21 09:58 Pulse 68 03/05/21 00:00 Resp 18 03/05/21 09:58 BP 98/65 03/05/21 09:58 Pulse Ox 100 03/04/21 18:06 Results Result Diagrams: 03/04/21 09:26 All other labs normal. Assessment and Plan - Psychiatric problem (1) Encounter for screening examination for mental health and behavioral disorders Current Visit: Yes Status: Acute
[2021-03-05 19:44] VITALS: BP 99/64
== END 2021-03-05 15:15 | disposition home or self-care (01) | DRG 775 ==
LOC: TRG 07:47 → APU 07:48 → LD 10:00 → TRG 10:19 → OB 03-04 00:30
PROVIDERS: ADMIT Obstetrics & Gynecology; ATTEND Obstetrics & Gynecology
PROC: 10E0XZZ Delivery of Products of Conception, External Approach (ICD-10-PCS; principal; 2021-03-03)
PROC: 3E0R3BZ Introduction of Anesthetic Agent into Spinal Canal, Percutaneous Approach (ICD-10-PCS; 2021-03-03)
PROC: 00HU33Z Insertion of Infusion Device into Spinal Canal, Percutaneous Approach (ICD-10-PCS; 2021-03-03)
PROC: 3E0234Z Introduction of Serum, Toxoid and Vaccine into Muscle, Percutaneous Approach (ICD-10-PCS; 2021-03-04)
DX: O99.824 Streptococcus B carrier state complicating childbirth (principal); O42.92 Full-term premature rupture of membranes, unspecified as to length of time between rupture and onset of labor; O99.02 Anemia complicating childbirth; D62 Acute posthemorrhagic anemia; O36.5930 Maternal care for other known or suspected poor fetal growth, third trimester, not applicable or unspecified; Z20.822 Contact with and (suspected) exposure to COVID-19; Z3A.38 38 weeks gestation of pregnancy; Z37.0 Single live birth; Z13.30 Encounter for screening examination for mental health and behavioral disorders, unspecified; Z23 Encounter for immunization; Z79.899 Other long term (current) drug therapy
CPT/HCPCS: 36415; 80307; 81001; 85014; 85018; 85027; 86592; 86850; 86900; 86901; 88307; 99211; G0378; G0463; J0290; J1050; J2590; J3010; J7120; U0003